=== PATIENT | female | born 1990 | race African-American/Black ===

== ENCOUNTER 2019-03-12 21:04 | Emergency (ER) | payer BC ==
[~2019-03-12] VITALS: Ht 170.2 cm; Wt 95.3 kg
[2019-03-12 21:45] LABS: URINE BILIRUBIN NEGATIVE (Negative); URINE BLOOD TRACE (Negative); URINE CLARITY CLEAR; URINE COLOR YELLOW; URINE GLUCOSE-RANDOM* NEGATIVE (Negative); URINE KETONES NEGATIVE (Negative); URINE LEUKOCYTES-REFLEX NEGATIVE (Negative); URINE NITRITE-REFLEX NEGATIVE (Negative); URINE PROTEIN (DIPSTICK) NEGATIVE (Negative); URINE UROBILINOGEN 0.2 E.U./dl (0.2-1.0)
[2019-03-12] MEDS ORDERED: TRAMADOL 50 MG50 MG PO (21:59)
[2019-03-12] MEDS ORDERED: NORFLEX100 MG PO (21:59)
[2019-03-12] MEDS ORDERED: MOBIC7.5 MG PO (21:59)
[2019-03-12 22:10] VITALS: BP 141/82
== END 2019-03-12 22:36 | disposition home or self-care (01) ==
LOC: ER 21:04
PROVIDERS: Nurse Practitioner Family
DX: S39.012A Strain of muscle, fascia and tendon of lower back, initial encounter (principal); X58.XXXA Exposure to other specified factors, initial encounter; Y92.89 Other specified places as the place of occurrence of the external cause; Y93.89 Activity, other specified; Y99.8 Other external cause status